=== PATIENT | male | born 1965 | race Caucasian/White ===

== ENCOUNTER 2017-04-13 10:36 | Inpatient (IN) | payer OTHER ==
[2017-04-13 11:02] VITALS: BMI 21.2
--- NOTE | 2017-04-13 12:09 | HP ---
CIWA Score - CIWA Score Nausea/Vomitin-No Nausea/No Vomiting Muscle Tremors: 3 Anxiety: 4-Mod. Anxious/Guarded Agitation: 3 Paroxysmal Sweats: 1-Minimal Palms Moist Orientation: 0-Oriented Tacttile Disturbances: 2-Mild Itch/Numbness/Burn Auditory Disturbances: 0-None Visual Disturbances: 0-None Headache: 0-None Present CIWA-Ar Total Score: 13 Admission ROS BHS - HPI Chief Complaint: WITHDRAWAL SX FROM ALCOHOL Allergies/Adverse Reactions: Allergies Allergy/AdvReac Type Severity Reaction Status Date / Time chocolate flavor Allergy Intermediate Hives Verified 06/01/14 15:54 No Known Drug Allergies Allergy Verified 06/01/14 16:52 History of Present Illness: 51 Y/O MALE WITH A HX OF ALCOHOL DEPENDENCE SEEKING DETOX TX. PT REPORTS ABOUT TWO YEARS SOBRIETY SINCE HIS LAST TREATMENT BEFORE CURRENTLY RELAPSING. STATES LONGEST PERIOD OF SOBRIETY OF 4 YEARS IN THE PAST. Exam Limitations: No Limitations - Ebola screening Have you traveled outside of the country in the last 21 days: No Have you had contact with anyone from an Ebola affected area: No Have you been sick,other than usual withdrawal symptoms: No Do you have a fever: No - Review of Systems Constitutional: Chills, Night Sweats, Unintentional Wgt. Loss EENT: reports: Blurred Vision, Dental Problems (CAVITIES/FILLINGS) Respiratory: reports: Other (HX OF SMALL NODE OR SCAR TISSUE ON LOWER LEFT LUNG IN THE PAST) Cardiac: reports: Lightheadedness GI: reports: Diarrhea, Nausea, Vomiting : reports: No Symptoms Reported Musculoskeletal: reports: Back Pain, Joint Pain, Muscle Pain Integumentary: reports: Rash (HX ECZEMA) Neuro: reports: Headache, Numbness, Tremors, Unsteady Gait, Dizziness Endocrine: reports: No Symptoms Reported Hematology: reports: No Symptoms Reported Psychiatric: reports: Orientated x3, Anxious Other Systems: Reviewed and Negative Patient History - Patient Medical History Hx Anemia: No Hx Asthma: No Hx Chronic Obstructive Pulmonary Disease (COPD): No Hx Cancer: No Hx Cardiac Disorders: No Hx Congestive Heart Failure: No Hx Hypertension: No Hx Hypercholesterolemia: No Hx Pacemaker: No HX Cerebrovascular Accident: No Hx Seizures: No Hx Dementia: No Hx Diabetes: No Hx Gastrointestinal Disorders: No Hx Liver Disease: No Hx Genitourinary Disorders: No Hx Sexually Transmitted Disorders: No (DENIES) Hx Renal Disease (ESRD): No Hx Thyroid Disease: No Hx Human Immunodeficiency Virus (HIV): No (NEGATIVE HX) Hx Hepatitis C: No (DENIES) Hx Depression: No (BUT ANXIETY DISORDER/INSOMNIA) Hx Suicide Attempt: No (DENIES) Hx Bipolar Disorder: No Hx Schizophrenia: No - Patient Surgical History Past Surgical History: No Hx Neurologic Surgery: No Hx Cataract Extraction: No Hx Cardiac Surgery: No Hx Lung Surgery: No Hx Breast Surgery: No Hx Breast Biopsy: No Hx Abdominal Surgery: No Hx Appendectomy: No Hx Cholecystectomy: No Hx Genitourinary Surgery: No Hx Orthopedic Surgery: No Anesthesia Reaction: No - PPD History Previous Implant?: Yes Documented Results: Positive w/proof Date: 06/03/14 PPD to be Administered?: Yes - Reproductive History Patient is a Female of Child Bearing Age (11 -55 yrs old): No (MALE) - Smoking Cessation Smoking history: Current every day smoker Have you smoked in the past 12 months: Yes Aproximately how many cigarettes per day: 9 Hx Chewing Tobacco Use: No Initiated information on smoking cessation: Yes 'Breaking Loose' booklet given: 04/13/17 - Substance & Tx. History Hx Alcohol Use: Yes (VODKA) Hx Substance Use: Yes (MARIJUANA ON OCASSION) Substance Use Type: Alcohol, Marijuana Hx Substance Use Treatment: Yes (LAST TX AT [facility] X 6 MONTHS) - Substances Abused Alcohol Route: Oral Frequency: 3-6 times per week Amount used: 1 pint of vodka Age of first use: 17 Date of Last Use: 04/11/17 Marijuana/Hashish Route: Smoking Frequency: 1-3 times last 30 days Amount used: 1/2 JOINT Age of first use: 18 Date of Last Use: 04/04/17 Family Disease History - Family Disease History Family History: Unable to Obtain (PT IS ADOPTED--DOES NOT KNOW FAMILY HX.) Admission Physical Exam BHS - Vital Signs Vital Signs: Vital Signs - 24 hr 04/13/17 10:54 Temperature 97.8 F Pulse Rate 78 Respiratory 18 Rate Blood Pressure 140/80 - Physical General Appearance: Yes: Moderate Distress, Irritable, Anxious HEENTM: Yes: EOMI, Normocephalic, ADRIANA Respiratory: Yes: Chest Non-Tender, Lungs Clear, Normal Breath Sounds, No Respiratory Distress Neck: Yes: No masses,lesions,Nodules, Supple, Trachea in good position Breast: Yes: Breast Exam Deferred Cardiology: Yes: Regular Rhythm, Regular Rate, S1, S2 Abdominal: Yes: Normal Bowel Sounds, Non Tender, Flat Genitourinary: Yes: Other (N/C) Back: Yes: Within Normal Limits Musculoskeletal: Yes: full range of Motion, Gait Steady Extremities: Yes: Normal Range of Motion, Non-Tender 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, Fully Oriented, Alert, Motor Strength 5/5 Integumentary: Yes: Dry, Warm Lymphatic: Yes: Within Normal Limits - Diagnostic (1) Contact dermatitis Current Visit: Yes Status: Acute (2) Nicotine dependence Current Visit: Yes Status: Acute Qualifiers: Nicotine product type: cigarettes Substance use status: in withdrawal Qualified Code(s): F17.213 - Nicotine dependence, cigarettes, with withdrawal (3) Alcohol dependence with uncomplicated withdrawal Current Visit: Yes Status: Acute Cleared for Admission [facility] - Detox or Rehab [facility] Level of Care: Medically Managed Detox Regimen/Protocol: Valium (PT DECLINED TO TAKE LIBRIUM DUE TO INCREASED SEDATION EFFECT.) [facility] Breath Alcohol Content Breath Alcohol Content: 0 Urine Drug Screen - Results Drug Screen Negative: No Urine Drug Screen Results: THC-Marijuana
[2017-04-13] MEDS ORDERED: IBUPROFEN 400 MG TABLET (FP) PO PRN (12:29)
[2017-04-13] MEDS ORDERED: MENTHOL/PHENOL 1 EACH UD MM PRN (12:29)
[2017-04-13] MEDS ORDERED: ACETAMINOPHEN 325 MG TABLET (FP) PO PRN (12:29)
[2017-04-13] MEDS ORDERED: P-EPHED 60MG/TRIPROLIDI 2.5MG TABLET PO PRN (12:29)
[2017-04-13] MEDS ORDERED: hydrOXYzine PAMOATE 50 MG CAPSULE (FP) PO PRN (12:29)
[2017-04-13] MEDS ORDERED: guaiFENesin/D-METHORPHAN HB 10 ML UNIT-DOSE CUPS PO PRN (12:29)
[2017-04-13] MEDS ORDERED: diazePAM 5 MG TABLET PO PRN (12:29)
[2017-04-13] MEDS ORDERED: MAGNESIUM HYDROX 2400MG/30ML ORAL SUSPENSION 30 ML CUP PO PRN (12:29)
[2017-04-13] MEDS ORDERED: MAGNESIUM CITRATE 300 ML BOTTLE PO PRN (12:29)
[2017-04-13] MEDS ORDERED: MAG HYDROX/AL HYDROX/SIMETH 30 ML UNIT-DOSE CUP PO PRN (12:29)
[2017-04-13] MEDS ORDERED: diazePAM 5 MG TABLET PO ONE (12:29)
[2017-04-13] MEDS ORDERED: LOPERAMIDE HCL 2 MG CAPSULE PO PRN (12:29)
[2017-04-13] MEDS ORDERED: NICOTINE POLACRILEX 2 MG GUM BUC PRN (12:29)
[2017-04-13] MEDS: NICOTINE 14 MG/24 HOURS TOPICAL PATCH TD SCH (13:10)
[2017-04-13] MEDS: diazePAM 5 MG TABLET PO SCH ×2 (13:18→22:02)
--- NOTE | 2017-04-13 14:38 | EKG ---
Test Reason : Blood Pressure : / mmHG Vent. Rate : 071 BPM Atrial Rate : 071 BPM P-R Int : 150 ms QRS Dur : 094 ms QT Int : 418 ms P-R-T Axes : 063 058 071 degrees QTc Int : 454 ms NORMAL SINUS RHYTHM WITH SINUS ARRHYTHMIA NORMAL ECG NO PREVIOUS ECGS AVAILABLE Confirmed by Aldo Lam MD ([id number]) on 04/13/2017 2:38:09 PM Referred By: Confirmed By:Aldo Lam MD
[2017-04-13 15:07] LABS: HEMATOCRIT 41.2 % (35.4-49); HEMOGLOBIN 13.4 GM/dL (11.7-16.9); MCH 30.6 pg (25.7-33.7); MCHC 32.5 g/dl (32.0-35.9); MEAN CELL VOLUME 94.1 fl (80-96); MEAN PLT VOLUME 9.8 fl (7.5-11.1); PLATELET COUNT 227 K/MM3 (134-434); RBC 4.38 M/mm3 (4.00-5.60); RDW 13.3 % (11.9-15.9); WHITE BLOOD COUNT 5.7 K/mm3 (4.0-10.0)
[2017-04-13 15:13] LABS: CHLORIDE 101 mmol/L (98-107); SODIUM 137 mmol/L (136-145)
[2017-04-13 15:19] LABS: ALBUMIN 3.8 g/dl (3.4-5.0); ALK PHOS 55 U/L (45-117); ANION GAP 10 (8-16); BILIRUBIN,TOTAL 1.8 mg/dL (0.2-1.0); BLOOD UREA NITROGEN 12 mg/dL (7-18); CALCIUM 9.2 mg/dL (8.5-10.1); CO2 26 mmol/L (21-32); CREATININE 0.8 mg/dL (0.7-1.3); GLUCOSE,RANDOM 83 mg/dL (74-106); SGOT/AST 16 U/L (15-37); SGPT/ALT 17 U/L (12-78); TOT PROT 6.8 g/dl (6.4-8.2)
[2017-04-13 18:09] LABS: URINE APPEARANCE CLEAR; URINE BILIRUBIN NEGATIVE (NEGATIVE); URINE BLOOD NEGATIVE (NEGATIVE); URINE COLOR LTYELLOW; URINE GLUCOSE (UA) NEGATIVE (NEGATIVE); URINE KETONE NEGATIVE (NEGATIVE); URINE LEUK ESTERASE NEGATIVE (NEGATIVE); URINE NITRITE NEGATIVE (NEGATIVE); URINE PROTEIN NEGATIVE (NEGATIVE); URINE UROBILINOGEN NEGATIVE mg/dL (0.2-1.0)
[2017-04-13] MEDS: THIAMINE HCL 100 MG TABLET (FP) PO SCH (22:02)
[2017-04-14] MEDS: diazePAM 5 MG TABLET PO SCH ×3 (05:44→22:17)
[2017-04-14] MEDS: PRENATAL VITAMINS W/ FOLIC ACID TABLET (FP) PO SCH (10:19)
[2017-04-14] MEDS: NICOTINE 14 MG/24 HOURS TOPICAL PATCH TD SCH (10:20)
[2017-04-14] MEDS ORDERED: FLU VACCINE QUAD 60 MCG/0.5 ML (MDV 17-18) IM ONE (12:00)
--- NOTE | 2017-04-14 14:12 | PN ---
[facility] CIWA - CIWA Score Nausea/Vomitin-No Nausea/No Vomiting Muscle Tremors: 4-Moderate,w/Arms Extend Anxiety: 4-Mod. Anxious/Guarded Agitation: 4-Moderately Restless Paroxysmal Sweats: 1-Minimal Palms Moist Orientation: 0-Oriented Tacttile Disturbances: 3-Moderate Itch/Numb/Burn Auditory Disturbances: 0-None Visual Disturbances: 0-None Headache: 0-None Present CIWA-Ar Total Score: 16 BHS Progress Note (SOAP) Subjective: ANXIETY,BACK PAIN,FATIGUE. Objective: 04/14/17 14:11 Vital Signs Temperature 97.0 F L 04/14/17 13:11 Pulse Rate 74 04/14/17 13:11 Respiratory Rate 18 04/14/17 13:11 Blood Pressure 107/70 04/14/17 13:11 O2 Sat by Pulse Oximetry (%) Laboratory Last Values WBC 5.7 K/mm3 (4.0-10.0) D 04/13/17 12:40 RBC 4.38 M/mm3 (4.00-5.60) 04/13/17 12:40 Hgb 13.4 GM/dL (11.7-16.9) 04/13/17 12:40 Hct 41.2 % (35.4-49) 04/13/17 12:40 MCV 94.1 fl (80-96) 04/13/17 12:40 MCH 30.6 pg (25.7-33.7) 04/13/17 12:40 MCHC 32.5 g/dl (32.0-35.9) 04/13/17 12:40 RDW 13.3 % (11.9-15.9) D 04/13/17 12:40 Plt Count 227 K/MM3 (134-434) 04/13/17 12:40 MPV 9.8 fl (7.5-11.1) D 04/13/17 12:40 Sodium 137 mmol/L (136-145) 04/13/17 12:40 Potassium 4.0 mmol/L (3.5-5.1) 04/13/17 12:40 Chloride 101 mmol/L (98-107) 04/13/17 12:40 Carbon Dioxide 26 mmol/L (21-32) 04/13/17 12:40 Anion Gap 10 (8-16) 04/13/17 12:40 BUN 12 mg/dL (7-18) 04/13/17 12:40 Creatinine 0.8 mg/dL (0.7-1.3) 04/13/17 12:40 Creat Clearance w eGFR > 60 (>60) 04/13/17 12:40 Random Glucose 83 mg/dL (74-106) 04/13/17 12:40 Calcium 9.2 mg/dL (8.5-10.1) 04/13/17 12:40 Total Bilirubin 1.8 mg/dL (0.2-1.0) H 04/13/17 12:40 AST 16 U/L (15-37) 04/13/17 12:40 ALT 17 U/L (12-78) D 04/13/17 12:40 Alkaline Phosphatase 55 U/L (45-117) 04/13/17 12:40 Total Protein 6.8 g/dl (6.4-8.2) 04/13/17 12:40 Albumin 3.8 g/dl (3.4-5.0) 04/13/17 12:40 Urine Color Ltyellow 04/13/17 15:00 Urine Appearance Clear 04/13/17 15:00 Urine pH 6.0 (5.0-8.0) 04/13/17 15:00 Ur Specific [place] 1.010 (1.001-1.035) 04/13/17 15:00 Urine Protein Negative (NEGATIVE) 04/13/17 15:00 Urine Glucose (UA) Negative (NEGATIVE) 04/13/17 15:00 Urine Ketones Negative (NEGATIVE) 04/13/17 15:00 Urine Blood Negative (NEGATIVE) 04/13/17 15:00 Urine Nitrite Negative (NEGATIVE) 04/13/17 15:00 Urine Bilirubin Negative (NEGATIVE) 04/13/17 15:00 Urine Urobilinogen Negative mg/dL (0.2-1.0) 04/13/17 15:00 Ur Leukocyte Esterase Negative (NEGATIVE) 04/13/17 15:00 RPR Titer Nonreactive (NONREACTIVE) 04/13/17 12:40 Assessment: 04/14/17 14:11 WITHDRAWAL SX Plan: CONTINUE DETOX
--- NOTE | 2017-04-14 14:35 | CONSULT ---
[facility] Psychiatric Consult - Data Date of interview: 04/14/17 Admission source: [facility] Identifying data: Readmission to [facility] for this 51 y/o male seeking detox treatment on for alcohol and cannabis dependence.Patient is single,a father of one,homeless,unemployed and reportedly deprived of financial assistance. Substance Abuse History: Confirmed by patient in this session.See details in current [facility] report : Smoking history: Current every day smoker. Have you smoked in the past 12 months: Yes. Aproximately how many cigarettes per day: 9. Hx Chewing Tobacco Use: No. Initiated information on smoking cessation: Yes. 'Breaking Loose' booklet given: 04/13/17. - Substance & Tx. History. Hx Alcohol Use: Yes (VODKA). Hx Substance Use: Yes (MARIJUANA ON OCASSION). Substance Use Type: Alcohol, Marijuana. Hx Substance Use Treatment: Yes (LAST TX AT [facility] X 6 MONTHS). - Substances Abused. Alcohol. Route: Oral. Frequency: 3-6 times per week. Amount used: 1 pint of vodka. Age of first use: 17. Date of Last Use: 04/11/17. Marijuana/Hashish. Route : Smoking. Frequency: 1-3 times last 30 days. Amount used: 1/2 JOINT. Age of first use: 18. Date of Last Use: 04/04/17 Medical History: Lower back pain. Psychiatric History: Patient denies. Physical/Sexual Abuse/Trauma History: Patient denies. Additional Comment: Urine Drug Screen Results: THC-Marijuana.Noted. Mental Status Exam - Mental Status Exam Alert and Oriented to: Time, Place, Person Cognitive Function: Good Patient Appearance: Well Groomed Mood: Anxious, Hopeful Affect: Appropriate, Normal Range Patient Behavior: Fatigued, Appropriate, Cooperative Speech Pattern: Clear, Appropriate Voice Loudness: Normal Thought Process: Intact, Goal Oriented Thought Disorder: Not Present Hallucinations: Denies Suicidal Ideation: Denies Homicidal Ideation: Denies Insight/Judgement: Poor Sleep: Poorly, Difficulty falling asleep Appetite: Good Muscle strength/Tone: Normal Gait/Station: Normal Psychiatric Findings - Problem List ([place] 1, 2,3) (1) Alcohol dependence with uncomplicated withdrawal Current Visit: Yes Status: Acute (2) Nicotine dependence Current Visit: Yes Status: Acute Qualifiers: Nicotine product type: cigarettes Substance use status: in withdrawal Qualified Code(s): F17.213 - Nicotine dependence, cigarettes, with withdrawal (3) Marihuana dependence Current Visit: Yes Status: Acute (4) Insomnia Current Visit: Yes Status: Acute - Initial Treatment Plan Initial Treatment Plan: Psychoeducation and support provided.Sleep hygiene discussed.Detoxification in progress.Ambien 10 mg po hs prn.Patient is made aware of potential for parasomnias (sleep-walking).He agrees with this careplan.Observation.
[2017-04-14] MEDS: ZOLPIDEM TARTRATE 10 MG TABLET (PARK CARE ONLY) PO PRN (22:17)
[2017-04-14] MEDS: THIAMINE HCL 100 MG TABLET (FP) PO SCH (22:17)
[2017-04-15] MEDS: diazePAM 5 MG TABLET PO SCH ×2 (10:34→22:10)
[2017-04-15] MEDS: NICOTINE 14 MG/24 HOURS TOPICAL PATCH TD SCH (10:34)
[2017-04-15] MEDS: PRENATAL VITAMINS W/ FOLIC ACID TABLET (FP) PO SCH (10:34)
--- NOTE | 2017-04-15 12:07 | PN ---
[facility] CIWA - CIWA Score Nausea/Vomitin-Mild Nausea/No Vomiting Muscle Tremors: 3 Anxiety: 3 Agitation: 0-Normal Activity Paroxysmal Sweats: 2 Orientation: 0-Oriented Tacttile Disturbances: 1-Very Mild Itch/Numbness Auditory Disturbances: 0-None Visual Disturbances: 0-None Headache: 0-None Present CIWA-Ar Total Score: 10 S Progress Note (SOAP) Subjective: Anxiety, shakes, body aches Objective: 04/15/17 12:05 Last Vital Signs Temp Pulse Resp BP Pulse Ox 96.7 F L 82 18 100/70 04/15/17 09:33 04/15/17 09:33 04/15/17 09:33 04/15/17 09:33 Laboratory Last Values WBC 5.7 K/mm3 (4.0-10.0) D 04/13/17 12:40 RBC 4.38 M/mm3 (4.00-5.60) 04/13/17 12:40 Hgb 13.4 GM/dL (11.7-16.9) 04/13/17 12:40 Hct 41.2 % (35.4-49) 04/13/17 12:40 MCV 94.1 fl (80-96) 04/13/17 12:40 MCH 30.6 pg (25.7-33.7) 04/13/17 12:40 MCHC 32.5 g/dl (32.0-35.9) 04/13/17 12:40 RDW 13.3 % (11.9-15.9) D 04/13/17 12:40 Plt Count 227 K/MM3 (134-434) 04/13/17 12:40 MPV 9.8 fl (7.5-11.1) D 04/13/17 12:40 Sodium 137 mmol/L (136-145) 04/13/17 12:40 Potassium 4.0 mmol/L (3.5-5.1) 04/13/17 12:40 Chloride 101 mmol/L (98-107) 04/13/17 12:40 Carbon Dioxide 26 mmol/L (21-32) 04/13/17 12:40 Anion Gap 10 (8-16) 04/13/17 12:40 BUN 12 mg/dL (7-18) 01/09/18 12:40 Creatinine 0.8 mg/dL (0.7-1.3) 04/13/17 12:40 Creat Clearance w eGFR > 60 (>60) 04/13/17 12:40 Random Glucose 83 mg/dL (74-106) 04/13/17 12:40 Calcium 9.2 mg/dL (8.5-10.1) 04/13/17 12:40 Total Bilirubin 1.8 mg/dL (0.2-1.0) H 04/13/17 12:40 AST 16 U/L (15-37) 04/13/17 12:40 ALT 17 U/L (12-78) D 04/13/17 12:40 Alkaline Phosphatase 55 U/L (45-117) 04/13/17 12:40 Total Protein 6.8 g/dl (6.4-8.2) 04/13/17 12:40 Albumin 3.8 g/dl (3.4-5.0) 04/13/17 12:40 Urine Color Ltyellow 04/13/17 15:00 Urine Appearance Clear 04/13/17 15:00 Urine pH 6.0 (5.0-8.0) 04/13/17 15:00 Ur Specific [place] 1.010 (1.001-1.035) 04/13/17 15:00 Urine Protein Negative (NEGATIVE) 04/13/17 15:00 Urine Glucose (UA) Negative (NEGATIVE) 04/13/17 15:00 Urine Ketones Negative (NEGATIVE) 04/13/17 15:00 Urine Blood Negative (NEGATIVE) 04/13/17 15:00 Urine Nitrite Negative (NEGATIVE) 04/13/17 15:00 Urine Bilirubin Negative (NEGATIVE) 04/13/17 15:00 Urine Urobilinogen Negative mg/dL (0.2-1.0) 04/13/17 15:00 Ur Leukocyte Esterase Negative (NEGATIVE) 04/13/17 15:00 RPR Titer Nonreactive (NONREACTIVE) 04/13/17 12:40 Labs noted Assessment: 04/15/17 12:06 withdrawal symptoms Plan: Continue detox
[2017-04-15] MEDS: ZOLPIDEM TARTRATE 10 MG TABLET (PARK CARE ONLY) PO PRN (22:10)
[2017-04-15] MEDS: THIAMINE HCL 100 MG TABLET (FP) PO SCH (22:10)
[2017-04-16] MEDS: diazePAM 5 MG TABLET PO SCH (10:15)
[2017-04-16] MEDS: NICOTINE 14 MG/24 HOURS TOPICAL PATCH TD SCH (10:15)
[2017-04-16] MEDS: PRENATAL VITAMINS W/ FOLIC ACID TABLET (FP) PO SCH (10:15)
--- NOTE | 2017-04-16 12:27 | PN ---
BHS Progress Note (SOAP) Subjective: Anxious, restless, sweating Objective: 04/16/17 12:25 Last Vital Signs Temp Pulse Resp BP Pulse Ox 98.0 F 78 18 111/73 04/16/17 10:20 04/16/17 10:20 04/16/17 10:20 04/16/17 10:20 Laboratory Tests 04/13/17 04/13/17 04/13/17 12:40 12:40 12:40 WBC 5.7 D RBC 4.38 Hgb 13.4 Hct 41.2 MCV 94.1 MCH 30.6 MCHC 32.5 RDW 13.3 D Plt Count 227 MPV 9.8 D Sodium 137 Potassium 4.0 Chloride 101 Carbon Dioxide 26 Anion Gap 10 BUN 12 Creatinine 0.8 Creat Clearance w eGFR > 60 Random Glucose 83 Calcium 9.2 Total Bilirubin 1.8 H AST 16 ALT 17 D Alkaline Phosphatase 55 Total Protein 6.8 Albumin 3.8 Urine Color Urine Appearance Urine pH Ur Specific [place] Urine Protein Urine Glucose (UA) Urine Ketones Urine Blood Urine Nitrite Urine Bilirubin Urine Urobilinogen Ur Leukocyte Esterase RPR Titer Nonreactive 04/13/17 15:00 WBC RBC Hgb Hct MCV MCH MCHC RDW Plt Count MPV Sodium Potassium Chloride Carbon Dioxide Anion Gap BUN Creatinine Creat Clearance w eGFR Random Glucose Calcium Total Bilirubin AST ALT Alkaline Phosphatase Total Protein Albumin Urine Color Ltyellow Urine Appearance Clear Urine pH 6.0 Ur Specific [place] 1.010 Urine Protein Negative Urine Glucose (UA) Negative Urine Ketones Negative Urine Blood Negative Urine Nitrite Negative Urine Bilirubin Negative Urine Urobilinogen Negative Ur Leukocyte Esterase Negative RPR Titer Labs noted Assessment: 04/16/17 12:26 Withdrawal symptoms Plan: Continue detox Encouraged to drink lots of water
[2017-04-16 15:36] VITALS: BP 101/73; PULSE 80; TEMP 97.8
[2017-04-17] MEDS ORDERED: diazePAM 5 MG TABLET PO SCH (10:00)
== END 2017-04-16 15:40 | disposition home or self-care (01) | DRG 775 ==
LOC: YASAS 10:36 → Y3N 12:07
PROVIDERS: ADMIT Internal Medicine; ATTEND Internal Medicine
PROC: HZ2ZZZZ Detoxification Services for Substance Abuse Treatment (ICD-10-PCS; principal; 2017-04-13)
DX: F10.230 Alcohol dependence with withdrawal, uncomplicated (principal); F12.20 Cannabis dependence, uncomplicated; F17.210 Nicotine dependence, cigarettes, uncomplicated; G47.00 Insomnia, unspecified; R76.11 Nonspecific reaction to tuberculin skin test without active tuberculosis; Z59.0 Homelessness
CPT/HCPCS: 36415; 80053; 81003; 85027; 86593; 90688; 93005; 93010